=== PATIENT | female | born 1950 | race Two or more races ===

== ENCOUNTER 2024-09-30 13:50 | Inpatient (IN) | payer OTHER ==
[2024-09-30 14:58] LABS: ABSOLUTE IMMATURE GRANULOCYTES 0.11 x10^3/uL (0.0-0.031); BASOPHILS # 0.04 x10^3/uL (0.01-0.08); EOSINOPHIL % 0.3 % (0.7-5.8); EOSINOPHILS # 0.04 x10^3/uL (0.04-0.36); HEMATOCRIT 33.4 % (34.1-44.9); HEMOGLOBIN 10.7 g/dL (11.2-15.7); MEAN CELL VOLUME 89.5 fl (79.4-94.8); MONOCYTE # 0.48 x10^3/uL (0.24-0.86); MONOCYTE % 4.1 % (4.7-12.5); PLATELET COUNT 165 x10^3/uL (182-369); RDW 13.8 % (12.4-16.6); VENOUS O2 SATURATION 86.8 % (70-80); VENOUS PCO2 44.5 mmHg (38-52); VENOUS PH 7.375 (7.310-7.410)
[2024-09-30 15:26] LABS: POTASSIUM 3.7 mmol/L (3.5-5.1)
[2024-09-30 15:32] LABS: ALBUMIN 3.8 g/dl (3.4-5.0); BLOOD UREA NITROGEN 28.5 mg/dL (7-18); CALCIUM 9.2 mg/dL (8.5-10.1)
[2024-09-30 15:36] LABS: CREATININE 1.9 mg/dL (0.55-1.3)
[2024-09-30 15:37] LABS: BILIRUBIN,TOTAL 0.4 mg/dL (0.2-1); TOT PROT 7.8 g/dl (6.4-8.2)
[2024-09-30 15:40] LABS: N-TERMINAL BNP 3781.2 pg/ml (5-125)
[2024-09-30] MEDS ORDERED: hydrALAZINE HCL 50 MG TABLET (FP) ONE (17:33)
[2024-09-30] MEDS ORDERED: LOSARTAN POTASSIUM 25 MG TABLET ONE (17:33)
[2024-09-30] MEDS: hydrALAZINE HCL 50 MG TABLET (FP) PO ONE (17:37)
[2024-09-30] MEDS: LOSARTAN POTASSIUM 25 MG TABLET PO ONE (17:37)
[2024-09-30] MEDS: hydrALAZINE HCL 20 MG/ML VIAL IVPUSH ONE ×2 (21:25→21:31)
[2024-09-30] MEDS: HEPARIN NA (PORCINE) 5,000 UNITS/ML 1ML VIAL SQ SCH (21:25)
[2024-09-30] MEDS ORDERED: HEPARIN NA (PORCINE) 5,000 UNITS/ML 1ML VIAL IVPUSH PRN ×2 (21:26)
[2024-09-30] MEDS ORDERED: ALBUTEROL SO4 2.5/IPRATROPIUM 0.5 INH SOL 3 ML VIAL.NEB. NEB PRN (21:31)
[2024-09-30] MEDS: hydrALAZINE HCL 20 MG/ML VIAL IVPUSH SCH (21:35)
[2024-09-30] MEDS: CARVEDILOL 6.25 MG TABLET (FP) PO SCH (22:04)
[2024-09-30] MEDS: ATORVASTATIN CA 40 MG TABLET (FP) PO SCH (22:04)
[2024-09-30] MEDS: HEPARIN - 25,000 UNIT in SODIUM CHLORIDE 495 ML IV SCH (22:25)
[2024-09-30] MEDS ORDERED: ACETAMINOPHEN 325 MG TABLET (FP) ONE (23:20)
[2024-09-30] MEDS: CLOPIDOGREL BISULFATE 75 MG TABLET (FP) PO ONE (23:23)
[2024-09-30] MEDS: ACETAMINOPHEN 325 MG TABLET (FP) PO PRN (23:24)
[2024-09-30] MEDS: HEPARIN NA (PORCINE) 5,000 UNITS/ML 1ML VIAL SQ ONE (23:33)
[2024-09-30 23:39] VITALS: BMI 4798.3
[2024-10-01] MEDS: hydrALAZINE HCL 25 MG TABLET (FP) PO SCH (06:15)
[2024-10-01] MEDS: FUROSEMIDE 40 MG/4 ML INJECTABLE VIAL IVPUSH SCH (06:15)
[2024-10-01] MEDS ORDERED: hydrALAZINE HCL 20 MG/ML VIAL IVPUSH SCH (07:00)
[2024-10-01 08:03] LABS: ABSOLUTE IMMATURE GRANULOCYTES 0.02 x10^3/uL (0.0-0.031); BASOPHILS # 0.05 x10^3/uL (0.01-0.08); EOSINOPHILS # 0.23 x10^3/uL (0.04-0.36); HEMATOCRIT 30.9 % (34.1-44.9); HEMOGLOBIN 9.6 g/dL (11.2-15.7); MCHC 31.1 g/dl (32.2-35.5); MEAN CELL VOLUME 90.1 fl (79.4-94.8); MEAN PLT VOLUME 11.5 fl (9.4-12.3); MONOCYTE # 0.55 x10^3/uL (0.24-0.86); MONOCYTE % 7.3 % (4.7-12.5); PLATELET COUNT 142 x10^3/uL (182-369); RDW 13.9 % (12.4-16.6)
[2024-10-01 08:39] LABS: POTASSIUM 4.1 mmol/L (3.5-5.1)
[2024-10-01 08:49] LABS: ALBUMIN 3.1 g/dl (3.4-5.0); CALCIUM 9.1 mg/dL (8.5-10.1); MAGNESIUM 1.9 mg/dL (1.8-2.4)
[2024-10-01 08:50] LABS: BLOOD UREA NITROGEN 30.9 mg/dL (7-18)
[2024-10-01 08:54] LABS: PHOSPHOROUS 4.3 mg/dL (2.5-4.9); TOT PROT 6.7 g/dl (6.4-8.2)
[2024-10-01 08:55] LABS: BILIRUBIN,TOTAL 0.3 mg/dL (0.2-1)
[2024-10-01] MEDS: CLOPIDOGREL BISULFATE 75 MG TABLET (FP) PO SCH (09:44)
[2024-10-01] MEDS: LOSARTAN POTASSIUM 25 MG TABLET PO SCH (09:44)
[2024-10-01] MEDS: ASPIRIN COATED 81 MG TABLET.EC PO SCH (09:44)
[2024-10-01] MEDS: amLODIPine BESYLATE 10 MG TABLET (FP) PO SCH (09:44)
[2024-10-01] MEDS: MAGNESIUM SULF 50% (8.12 MEQ/2 ML-1 GM VIAL) IVPB ONE (10:32)
[2024-10-01] MEDS ORDERED: PNEUMOC 20-VAL CONJ-DIP CRM/PF 0.5 ML SYRINGE IM ONE (11:00)
[2024-10-01] MEDS ORDERED: FUROSEMIDE 40 MG TABLET (FP) PO PRN (18:27)
[2024-10-01] MEDS ORDERED: CLOPIDOGREL BISULFATE 75 MG TABLET (FP) PO ONE (21:29)
[2024-10-01] MEDS: hydrALAZINE HCL 50 MG TABLET (FP) PO SCH (22:24)
[2024-10-01] MEDS: CARVEDILOL 12.5 MG TABLET (FP) PO SCH (22:25)
[2024-10-01] MEDS: ATORVASTATIN CA 80 MG TABLET (FP) PO SCH (22:25)
[2024-10-02 07:12] LABS: HEMATOCRIT 28.8 % (34.1-44.9); HEMOGLOBIN 9.1 g/dL (11.2-15.7); MCHC 31.6 g/dl (32.2-35.5); MEAN CELL VOLUME 90.9 fl (79.4-94.8); MEAN PLT VOLUME 11.8 fl (9.4-12.3); PLATELET COUNT 148 x10^3/uL (182-369); RDW 13.6 % (12.4-16.6)
[2024-10-02 07:55] LABS: POTASSIUM 3.6 mmol/L (3.5-5.1)
[2024-10-02 07:58] LABS: BLOOD UREA NITROGEN 38.8 mg/dL (7-18)
[2024-10-02 07:59] LABS: CALCIUM 8.8 mg/dL (8.5-10.1); MAGNESIUM 2.5 mg/dL (1.8-2.4)
[2024-10-02 08:02] LABS: CREATININE 2.2 mg/dL (0.55-1.3)
[2024-10-02 08:03] LABS: BILIRUBIN,TOTAL 0.4 mg/dL (0.2-1); TOT PROT 6.2 g/dl (6.4-8.2)
[2024-10-02] MEDS: amLODIPine BESYLATE 10 MG TABLET (FP) PO SCH (08:53)
[2024-10-02] MEDS: LOSARTAN POTASSIUM 50 MG TABLET PO SCH (08:53)
[2024-10-02] MEDS ORDERED: FUROSEMIDE 40 MG/5 ML UNIT-DOSE CUP PO SCH (10:00)
[2024-10-02] MEDS ORDERED: LOSARTAN POTASSIUM 50 MG TABLET PO SCH (10:00)
[2024-10-02] MEDS ORDERED: BISACODYL 10 MG SUPP.RECT PR PRN ×2 (13:00→13:01)
[2024-10-02] MEDS: BISACODYL 5 MG TABLET.DR (FP) PO PRN (14:42)
[2024-10-02 21:29] VITALS: RESP 20
[2024-10-03 06:48] LABS: HEMATOCRIT 32.4 % (34.1-44.9); MCHC 30.9 g/dl (32.2-35.5); MEAN CELL VOLUME 91.5 fl (79.4-94.8); MEAN PLT VOLUME 11.3 fl (9.4-12.3); PLATELET COUNT 166 x10^3/uL (182-369); RDW 13.7 % (12.4-16.6)
[2024-10-03 06:58] LABS: BLOOD UREA NITROGEN 35.2 mg/dL (7-18); CALCIUM 8.8 mg/dL (8.5-10.1)
[2024-10-03 06:59] LABS: ALBUMIN 3.2 g/dl (3.4-5.0); POTASSIUM 4.2 mmol/L (3.5-5.1)
[2024-10-03 07:04] LABS: BILIRUBIN,TOTAL 0.2 mg/dL (0.2-1); TOT PROT 6.8 g/dl (6.4-8.2)
[2024-10-03 07:10] LABS: CREATININE 2.2 mg/dL (0.55-1.3)
[2024-10-03] MEDS: LOSARTAN POTASSIUM 50 MG TABLET PO SCH (09:36)
[2024-10-03] MEDS: hydrALAZINE HCL 50 MG TABLET (FP) PO SCH (14:13)
[2024-10-03 18:52] VITALS: BP 145/60; PULSE 62; TEMP 98.2
== END 2024-10-03 19:05 | disposition home health service (06) | DRG 280 ==
LOC: JER 13:50 → JERBED 16:48 → OBSVTOIN 19:55 → J4W 20:06
PROVIDERS: ADMIT Student in an Organized Health Care Education/Training Program; ATTEND Internal Medicine
DX: I16.0 Hypertensive urgency (principal); I50.33 Acute on chronic diastolic (congestive) heart failure; I21.4 Non-ST elevation (NSTEMI) myocardial infarction; I13.0 Hypertensive heart and chronic kidney disease with heart failure and stage 1 through stage 4 chronic kidney disease, or unspecified chronic kidney disease; N18.9 Chronic kidney disease, unspecified; I49.3 Ventricular premature depolarization; G47.30 Sleep apnea, unspecified; E83.42 Hypomagnesemia
CPT/HCPCS: 0241U-QW; 36415; 71045-TC-FY; 80053; 80061; 82803; 82962; 83735; 83880; 84100; 84484; 85025; 85027; 85730; 93005; 93010; 99285-25; G0378; J1644